=== PATIENT | female | born 1960 | race Two or more races ===

== ENCOUNTER → 2022-10-17 | Outpatient (CLI) | payer OTHER, SELFPAY ==
--- NOTE | 2022-10-17 | GRA_PTH ---
PATIENT: JOEY MOLINA LOC: [facility]#:[id number] AGE/SX: 61/F ROOM: RE10/17/[address]: Dr. 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 Negative for atypia or malignancy. See comment. RIGO:avery 10/18/2022 COMMENT Special stain for fungi is negataive for organisms; matched control is appropriate. MICROSCOPIC DESCRIPTION Slides are reviewed. GROSS DESCRIPTION Received in fixative is one container labeled with the patient's name and designated gum tissue. The specimen consists of an irregular piece of bae mucosal tissue measuring 1.2 x 0.5 x 0.5 cm. The specimen is inked, bisected and submitted entirely in one cassette. / SJ:avery 10/17/2022 TC:5 CPT: 06671, 28741
== END | disposition home or self-care (01) ==
LOC: LABSPEC 13:26
PROVIDERS: Visit Provider Dentist Oral and Maxillofacial Surgery
DX: K06.8 Other specified disorders of gingiva and edentulous alveolar ridge (principal)
CPT/HCPCS: 88304; 88305; 88312